=== PATIENT | male | born 1965 | race Caucasian/White ===

== ENCOUNTER 2018-01-21 10:35 | Emergency (ER) | payer OTHER ==
[~2018-01-21] VITALS: Ht 177.8 cm; Wt 77.1 kg
[2018-01-21] MEDS ORDERED: FLEXERIL PO (11:34)
[2018-01-21] MEDS ORDERED: NORCO 5-325 TA1 EACH PO (11:34)
[2018-01-21 12:08] VITALS: BP 140/78
== END 2018-01-21 12:09 | disposition home or self-care (01) ==
LOC: ER 10:35
DX: M54.42 Lumbago with sciatica, left side (principal); Z88.8 Allergy status to other drugs, medicaments and biological substances; Z88.0 Allergy status to penicillin

== ENCOUNTER 2018-01-23 08:33 | Emergency (ER) | payer OTHER ==
[~2018-01-23] VITALS: Ht 177.8 cm; Wt 81.7 kg
[~2018-01-23 08:33] MED LIST: FLEXERIL PO; NORCO 5-325 TA1 EACH PO
[2018-01-23] MEDS ORDERED: NORCO 5-325 TA1 EACH PO (10:44)
[2018-01-23] MEDS ORDERED: NAPROSYN500 MG PO (10:44)
[2018-01-23 11:18] VITALS: BP 155/99
== END 2018-01-23 11:20 | disposition home or self-care (01) ==
LOC: ER 08:33
DX: M62.830 Muscle spasm of back (principal); F17.210 Nicotine dependence, cigarettes, uncomplicated; Z88.8 Allergy status to other drugs, medicaments and biological substances; Z88.0 Allergy status to penicillin